=== PATIENT | female | born 1960 | race Caucasian/White ===

== ENCOUNTER 2018-08-31 05:33 | Outpatient (CLI) | payer BC ==
[~2018-08-31] VITALS: Ht 170.2 cm; Wt 83.5 kg
[2018-08-31] MEDS ORDERED: VALA500T PO (10:36)
[2018-08-31] MEDS ORDERED: MONT10TA24 PO (10:36)
[2018-08-31] MEDS ORDERED: LOSA1TAB20 PO (10:36)
[2018-08-31] MEDS ORDERED: ASPI-586 PO (10:36)
[2018-08-31] MEDS ORDERED: MAGN400C PO (10:36)
[2018-08-31] MEDS ORDERED: POTA20LI3 PO (10:36)
[2018-08-31] MEDS ORDERED: OXYB5TAB9 PO (10:36)
[2018-08-31] MEDS ORDERED: INDO50CA11 PO (10:36)
[2018-08-31] MEDS ORDERED: LYSI500T37 PO (10:36)
[2018-08-31] MEDS ORDERED: MELA10CA2 PO (10:36)
[2018-08-31] MEDS ORDERED: TOPI100T11 PO (10:36)
[2018-08-31] MEDS ORDERED: MULT-1021 PO (10:36)
[2018-08-31] MEDS ORDERED: OMG1KC PO (10:36)
[2018-08-31] MEDS ORDERED: CHOL5000 PO (10:36)
== END 2018-08-31 10:59 ==
LOC: PREOP 05:33
PROVIDERS: ATTEND Otolaryngology Otolaryngology/Facial Plastic Surgery
DX: Z01.818 Encounter for other preprocedural examination (principal)

== ENCOUNTER 2018-09-06 09:06 | Day surgery (SDC) | payer BC ==
[~2018-09-06] VITALS: Ht 170.2 cm; Wt 83.5 kg
[~2018-09-06 09:06] MED LIST: ASPI-586 PO; CHOL5000 PO; INDO50CA11 PO; LOSA1TAB20 PO; LYSI500T37 PO; MAGN400C PO; MELA10CA2 PO; MONT10TA24 PO; MULT-1021 PO; OMG1KC PO; OXYB5TAB9 PO; POTA20LI3 PO; TOPI100T11 PO; VALA500T PO
[2018-09-06] MEDS ORDERED: LACTATED RINGERS 1,000 ML IV PRN (09:14)
[2018-09-06] MEDS ORDERED: FAMOTIDINE 20MG/2ML IV (PEPCID) IV ONE (10:15)
[2018-09-06 10:17] VITALS: BP 141/79
--- NOTE | 2018-09-06 11:21 | Progress Note-Pre Operative ---
Pre-Operative Progress Note H&P Reviewed The H&P was reviewed, patient examined and no changes noted. Date Seen by Provider: Sep 06, 2018 Time Seen by Provider: 11:15 Date H&P Reviewed: Sep 06, 2018 Time H&P Reviewed: 11:15 Pre-Operative Diagnosis: Deviated Nasal Septum, Hypertorph of left inf Turb YONI MCLAUGHLIN MD Sep 06, 2018 11:21
[2018-09-06] MEDS ORDERED: COCAINE HCL 4% 2 ML SYR ONE (11:25)
[2018-09-06] MEDS ORDERED: PHENYLEPHRINE 0.5% NASAL SPR (NEO-SYNEPHRINE) REG ONE (11:25)
[2018-09-06] MEDS ORDERED: LIDOCAINE PF 2% 5 ML (XYLOCAINE) VIAL ONE (11:26)
[2018-09-06] MEDS ORDERED: proPOfol 200 MG/20 ML (DIPRIVAN) VIAL IV ONE (11:26)
[2018-09-06] MEDS ORDERED: SEVOFLURANE (ULTANE) 15 ML INHAL SOLN ONE ×4 (11:26→12:47)
[2018-09-06] MEDS ORDERED: LIDOCAINE/EPI 1%-1:200,000 (XYLOCAINE) 10 ML VIAL ONE ×2 (11:26→12:12)
[2018-09-06] MEDS ORDERED: ROCURONIUM 10 MG/ML 5 ML SYRINGE IV ONE (11:26)
[2018-09-06] MEDS ORDERED: MIDAZOLAM 2 MG/2 ML (VERSED) VIAL ONE (11:27)
[2018-09-06] MEDS ORDERED: fentaNYL INJECTION 100 MCG/2 ML AMP ONE (11:27)
[2018-09-06] MEDS ORDERED: NEOSTIGMINE 1 MG/ML 5 ML SYRINGE ONE (12:41)
[2018-09-06] MEDS ORDERED: GLYCOPYRROLATE 0.2 MG/ML (ROBINUL) 2 ML VIAL ONE (12:41)
[2018-09-06] MEDS ORDERED: PROMETHAZINE INJ 25 MG/ML (PHENERGAN) AMP IVP PRN (12:45)
[2018-09-06] MEDS ORDERED: D5 1/2 NS W/KCL 20 MEQ/L 1,000 ML IV SCH (12:45)
[2018-09-06] MEDS ORDERED: ACETAMINOPHEN 325 MG TABLET PO PRN (12:45)
[2018-09-06] MEDS ORDERED: HYDROcodone/APAP 5 MG/325 MG (LORTAB) TAB PO PRN (12:45)
--- NOTE | 2018-09-06 12:45 | Progress Note-Post Operative ---
Post-Operative Progess Note Surgeon (s)/Wedding Transportation Driver (s) Surgeon YONI MCLAUGHLIN MD Wedding Transportation Driver n/a Pre-Operative Diagnosis Deviated Nasal Septum, Hypertorph of left inf Turb Post-Operative Diagnosis same Post-Op Procedure Note Date of Procedure: Sep 06, 2018 Name of Procedure Performed: Nasal Septoplasty, REduction of Left Inferior Turbinate Description & Findings Description and Findings: n/a Anesthesia Type get Estimated Blood Loss minimal Packing none. Specimen(s) collected/removed nasal septum YONI MCLAUGHLIN MD Sep 06, 2018 12:45
[2018-09-06] MEDS ORDERED: morphine INJ 10 MG/ML 1ML (SYR OR VIAL) ONE (13:15)
[2018-09-06 13:50] VITALS: BP 141/79
[2018-09-06] MEDS ORDERED: AMOX-355 PO (14:06)
[2018-09-06] MEDS ORDERED: ACHD5005 PO (14:06)
[2018-09-06] MEDS ORDERED: morphine INJ 10 MG/ML 1ML (SYR OR VIAL) IVP ONE (14:15)
[2018-09-06 14:20] VITALS: BP 146/71
--- NOTE | 2018-09-06 14:36 | Anesthesia-General Post-Op ---
General Patient Condition Mental Status/LOC: Same as Preop Cardiovascular: Satisfactory Nausea/Vomiting: Absent Respiratory: Satisfactory Pain: Controlled Complications: Absent Post Op Complications Complications None Follow Up Care/Instructions Patient Instructions None needed. Anesthesia/Patient Condition Patient Condition Patient is doing well, no complaints, stable vital signs, no apparent adverse anesthesia problems. No complications reported per nursing. YAIMA VILLA CRNA Sep 06, 2018 14:36
[2018-09-06 14:50] VITALS: BP 135/77
[2018-09-06 15:00] VITALS: BP 135/77
== END 2018-09-06 15:10 | disposition home or self-care (01) ==
LOC: SDC 09:06
PROVIDERS: ATTEND Otolaryngology Otolaryngology/Facial Plastic Surgery
DX: J34.2 Deviated nasal septum (principal); J34.3 Hypertrophy of nasal turbinates; I10 Essential (primary) hypertension; G47.33 Obstructive sleep apnea (adult) (pediatric); R56.9 Unspecified convulsions; K21.9 Gastro-esophageal reflux disease without esophagitis; Z79.82 Long term (current) use of aspirin; Z79.899 Other long term (current) drug therapy
CPT/HCPCS: 36415; 84132; 87081